=== PATIENT | female | born 1980 | race Caucasian/White ===

== ENCOUNTER 2019-11-27 09:27 | Outpatient (CLI) | payer OTHER, SELFPAY ==
--- NOTE | ~2019-11-27 | MM_ITS ---
EXAMINATION: MM screening trin[facility] BI w cristina HISTORY: Screening mammogram TECHNIQUE: Craniocaudal and mediolateral oblique 3-D tomosynthesis images were obtained and synthetic 2-D images were generated. CAD analysis was submitted and interpreted. COMPARISON: No prior mammogram is available for comparison at this institution. BREAST PARENCHYMAL COMPOSITION: The breasts are extremely dense, which lowers the sensitivity of mamm ography. FINDINGS: RIGHT BREAST: An asymmetry is present in the far posterior third of the breast in line with the nippl e axis on the craniocaudal view. LEFT BREAST: There is a possible low density mass in the central breast. IMPRESSION: 1. Bilateral breast findings as described above. 2. Additional mammographic views and possible breast ultrasound are recommended. BI-RADS Category 0: Incomplete: Needs additional imaging evaluation. Reviewed, dictated and finalized at location A. IMPRESSION: 1. Bilateral breast findings as described above. 2. Additional mammographic views and possible breast ultrasound are recommended . BI-RADS Category 0: Incomplete: Needs additional imaging evaluation.
== END 2019-11-27 09:28 | disposition home or self-care (01) ==
LOC: ANHIMG 09:30
PROVIDERS: PCP Nurse Practitioner Family; Visit Provider Obstetrics & Gynecology
DX: Z12.31 Encounter for screening mammogram for malignant neoplasm of breast (principal); R92.8 Other abnormal and inconclusive findings on diagnostic imaging of breast
CPT/HCPCS: 77063; 77067

== ENCOUNTER 2019-12-18 12:57 | Outpatient (CLI) | payer OTHER, SELFPAY ==
--- NOTE | ~2019-12-18 | MMUS_ITS ---
EXAMINATION: MM diagnostic mammo BI, US breast BI complete HISTORY: Follow-up breast asymmetries TECHNIQUE: Additional 3-D tomosynthesis images of the breasts were performed and synthetic 2-D images were generated. CAD analysis was submitted and interpreted. High resolution bilateral breast ultraso und was performed. COMPARISON: 11/27/2019 BREAST PARENCHYMAL COMPOSITION: The breasts are extremely dense, which lowers the sensitivity of mamm ography. FINDINGS: MAMMOGRAPHIC FINDINGS: There are no suspicious masses, calcifications or architectural distortion in either breast to sugges t malignancy. ULTRASOUND: Bilateral breast ultrasound: Normal heterogeneous echotexture without focal solid or cystic mass. IMPRESSION: 1. No mammographic or sonographic evidence for malignancy in either breast. 2. Routine yearly screening mammogram and regular clinical breast examination are recommended. BI-RADS Category 1: Negative Reviewed, dictated and finalized at location A. IMPRESSION: 1. No mammographic or sonographic evidence for malignancy in either breast. 2. Routine yearly screening mammogram and regular clinical breast examination a re recommended. BI-RADS Category 1: Negative
== END 2019-12-18 12:58 | disposition home or self-care (01) ==
PROVIDERS: PCP Nurse Practitioner Family; Visit Provider Obstetrics & Gynecology
DX: R92.8 Other abnormal and inconclusive findings on diagnostic imaging of breast (principal)
CPT/HCPCS: 76641; 77066

== ENCOUNTER 2020-11-28 14:23 | Outpatient (CLI) | payer OTHER, SELFPAY ==
--- NOTE | ~2020-11-28 | MM_ITS ---
EXAMINATION: MM screening [facility] BI w cristina HISTORY: Screening mammogram TECHNIQUE: Craniocaudal and mediolateral oblique 3-D tomosynthesis images were obtained and synthetic 2-D images were generated. CAD analysis was submitted and interpreted. COMPARISON: 12/18/2019, 11/27/2019 BREAST PARENCHYMAL COMPOSITION: The breasts are extremely dense, which lowers the sensitivity of mamm ography. FINDINGS: There is a stable asymmetry in the posterior third of the outer left breast which did not d emonstrate suspicious correlate on further imaging evaluation after baseline screening mammogram. The re is no evidence of suspicious mass, calcification, or architectural distortion to suggest malignanc y in either breast. There has been no suspicious interval change. IMPRESSION: 1. No mammographic evidence of malignancy. 2. Recommend routine screening mammography in one year. BI-RADS Category 2: Benign finding(s). Reviewed, dictated and finalized at location A.
== END 2020-11-28 14:24 | disposition home or self-care (01) ==
LOC: ANHIMG 14:26
PROVIDERS: PCP Nurse Practitioner Family; Visit Provider Obstetrics & Gynecology
DX: Z12.31 Encounter for screening mammogram for malignant neoplasm of breast (principal)
CPT/HCPCS: 77063; 77067

== ENCOUNTER 2021-04-28 16:29 | Outpatient (CLI) | payer OTHER, SELFPAY ==
[2021-04-28 16:51] LABS: Basophils Absolute Auto 0.05 K/mm3 (0.00-0.10); Basophils Percent Auto 0.8 % (0.0-1.0); Eosinophils Absolute Auto 0.26 K/mm3 (0.02-0.50); Eosinophils Percent Auto 4.2 % (1.0-6.0); Hematocrit 37.8 % (35.0-49.0); Hemoglobin 13.2 g/dL (12.0-15.0); Immature Granulocyte Absolute 0.02 K/mm3 (0.00-0.00); Immature Granulocyte Percent A 0.3 % (0.0-0.0); Lymphocytes Absolute Auto 1.79 K/mm3 (1.10-4.50); Mean Corpuscular HGB Conc 34.9 g/dL (32.0-36.0); Mean Corpuscular Hemoglobin 31.6 pg (27.0-31.0); Mean Corpuscular Volume 90.4 fL (78.0-102.0); Mean Platelet Volume 9.5 fl (9.2-11.8); Monocytes Absolute Auto 0.41 K/mm3 (0.10-0.90); Monocytes Percent Auto 6.6 % (2.0-11.0); Neutrophils Absolute Auto 3.7 K/mm3 (1.7-7.2); Neutrophils Percent Auto 59.1 % (50.0-70.0); Platelet Count Result 283 K/mm3 (150-420); Red Blood Count 4.18 M/mm3 (4.20-5.40); Red Cell Distribution Width 11.9 % (11.6-14.4); White Blood Count 6.2 K/mm3 (4.8-10.8)
[2021-04-28 16:55] LABS: Creatinine Urine 73.73 mg/dL (40-278); Total Protein Urine Random 13.5 mg/dL (0.0-11.9); Ur Ttl Prot Creatinine Ratio 0.18 mg/mg (0-0.20)
[2021-04-28 16:58] LABS: Hemoglobin A1C 7.1 % (<5.7)
[2021-04-28 17:56] LABS: Alanine Aminotransferase 18 U/L (14-59); Albumin Level 3.9 g/dL (3.4-5.0); Alkaline Phosphatase 80 U/L (46-116); Anion Gap 10 mmol/L (8-16); Aspartate Amino Transferase 13 U/L (15-37); Bilirubin,Total 0.3 mg/dL (0.00-1.00); Blood Urea Nitrogen 14 mg/dL (7-18); Calcium 8.4 mg/dL (8.5-10.1); Carbon Dioxide 28 mmol/L (21-32); Chloride 103 mmol/L (98-108); Cholesterol 171 mg/dL (0-200); Estimated Glomerular Filt Rate > 60; Glucose 149 mg/dL (70-99); HDL Direct 72 mg/dL (40-60); LDL Cholesterol Calculated 86 mg/dL (<130); Osmolality Calculated 295 mOsm/kg (285-295); Potassium 4.3 mmol/L (3.5-5.1); Sodium 141 mmol/L (136-145); Total Protein 6.6 g/dL (6.4-8.2); Triglycerides 65 mg/dL (0-150)
[2021-04-28 17:57] LABS: Thyroid Stimulating Hormone Reflex 0.52 u/IU/mL (0.36-3.74)
[2021-05-01 10:39] LABS: Vitamin D 25 Hydroxy 37 ng/mL (30-100)
== END 2021-04-28 16:30 | disposition home or self-care (01) ==
LOC: CHSLAB 16:34
PROVIDERS: PCP Nurse Practitioner Family
DX: E10.65 Type 1 diabetes mellitus with hyperglycemia (principal)
CPT/HCPCS: 36415; 80053; 80061; 82306; 82570; 83036; 84156; 84443; 85025

== ENCOUNTER 2021-05-04 16:02 | Outpatient (CLI) | payer OTHER, SELFPAY ==
[2021-05-04 17:52] LABS: SARS-CoV-2 RNA PCR Negative (Negative)
== END 2021-05-04 16:03 | disposition home or self-care (01) ==
LOC: CHSLAB 16:06
PROVIDERS: PCP Nurse Practitioner Family; Visit Provider Nurse Practitioner Family
DX: R11.10 Vomiting, unspecified (principal); Z20.822 Contact with and (suspected) exposure to COVID-19
CPT/HCPCS: C9803; U0003; U0005

== ENCOUNTER 2021-11-30 09:00 | Outpatient (CLI) | payer OTHER, SELFPAY ==
--- NOTE | ~2021-11-30 | MM_ITS ---
EXAMINATION: MM screening trinh BI w cristina HISTORY: Screening TECHNIQUE: Craniocaudal and mediolateral oblique 3-D tomosynthesis images were obtained and synthetic 2-D images were generated. CAD analysis was submitted and interpreted. COMPARISON: Comparison to multiple prior studies sequentially, with oldest reviewed study dated 11/26. BREAST PARENCHYMAL COMPOSITION: The breasts are extremely dense, which lowers the sensitivity of mamm ography FINDINGS: There is no evidence of suspicious mass, calcification, or architectural distortion to sugg est malignancy in either breast. There has been no suspicious interval change. IMPRESSION: 1. No mammographic evidence of malignancy. 2. Recommend routine screening mammography in one year. BI-RADS Category 1: Negative Reviewed, dictated and finalized at location A.
== END 2021-11-30 09:01 | disposition home or self-care (01) ==
LOC: ANHIMG 09:02
PROVIDERS: PCP Nurse Practitioner Family; Visit Provider Obstetrics & Gynecology
DX: Z12.31 Encounter for screening mammogram for malignant neoplasm of breast (principal)
CPT/HCPCS: 77063; 77067

== ENCOUNTER 2022-09-20 15:49 | Outpatient (CLI) | payer OTHER, SELFPAY ==
--- NOTE | ~2022-09-20 | US_ITS ---
EXAMINATION: US pelvic complete w TV DATE: 09/20/2022 16:36 INDICATION: Uterine hypertrophy Comparison:Ultrasound dated 03/31/2013 TECHNIQUE: Multiple transabdominal and endovaginal sonographic images of the pelvis performed. FINDINGS: The uterus measures 9.4 x 5.9 x 6.5 cm. The endometrial complex measures 1.5 cm. There is t race fluid in the endometrium. The right ovary measures 3.1 x 2.9 x 4.3 cm and the left ovary measures 4.2 x 2.4 x 1.7 cm. There ar e small follicles in each ovary. Normal doppler signal in both ovaries. There is trace free fluid in the pelvis. There are no abnormal masses seen on either side. IMPRESSION: 1. Thickened endometrium measuring 1.5 cm. Reviewed, dictated and finalized at location B.
== END 2022-09-20 15:50 | disposition home or self-care (01) ==
PROVIDERS: PCP Nurse Practitioner Family; Visit Provider Obstetrics & Gynecology
DX: N85.2 Hypertrophy of uterus (principal)
CPT/HCPCS: 76830; 76856

== ENCOUNTER 2023-02-26 09:33 | Outpatient (CLI) | payer OTHER, SELFPAY ==
--- NOTE | ~2023-02-26 | MM_ITS ---
EXAMINATION: MM screening [facility] BI w cristina HISTORY: Screening mammogram TECHNIQUE: Craniocaudal and mediolateral oblique 3-D tomosynthesis images were obtained and synthetic 2-D images were generated. CAD analysis was submitted and interpreted. COMPARISON: 11/30/2021, 11/28/2020 bilateral screening mammogram examinations 12/2019 bilateral diagnostic mammogram and bilateral complete breast ultrasound examination, reported negative 11/27/2019 bilateral screening mammogram BREAST PARENCHYMAL COMPOSITION: The breasts are extremely dense, which lowers the sensitivity of mamm ography. FINDINGS: There is no evidence of suspicious mass, calcification, or architectural distortion to sugg est malignancy in either breast. There has been no suspicious interval change. IMPRESSION: 1. No mammographic evidence of malignancy. 2. Recommend routine screening mammography in one year. BI-RADS Category 1: Negative Reviewed, dictated and finalized at location B.
== END 2023-02-26 09:34 | disposition home or self-care (01) ==
PROVIDERS: PCP Nurse Practitioner Family; Visit Provider Obstetrics & Gynecology
DX: Z12.31 Encounter for screening mammogram for malignant neoplasm of breast (principal)
CPT/HCPCS: 77063; 77067

== ENCOUNTER 2023-06-20 14:35 | Emergency (ER) | payer OTHER, SELFPAY ==
[2023-06-20 14:44] VITALS: BP 111/75; PULSE 78; RESP 18; TEMP 37.3; O2SAT 100
--- NOTE | 2023-06-20 14:47 | ED.GENADULT ---
HPI - General Adult General Chief complaint: Eye Problems Stated complaint: Eyes Source: patient, RN notes reviewed and old records reviewed Mode of arrival: ambulatory Limitations: no limitations History of Present Illness HPI narrative: 42-year-old female presents to [facility] with complaints of right eye irritation, redness, matting that started Tuesday morning. Patient states thought got laboratory equipment cleaner and eye Tuesday while cleaning but patient started using son's Polytrim eyedrops and has slight improvement until she ran out. Patient states then today woke with irritation swelling and crusting in bilateral eyes. Related Data Home Medications Medication Instructions Recorded Confirmed insulin lispro 100 unit/mL See Rx Instructions .Route .COMPLEX 06/20/23 06/20/23 subcutaneous solution (Humalog U-100 Insulin) levothyroxine 50 mcg tablet mcg 06/20/23 06/20/23 (Synthroid) Allergies Allergy/AdvReac Type Severity Reaction Status Date / Time erythromycin base Allergy Intermediate Unknown Verified 06/20/23 14:52 latex Allergy Intermediate Unknown Verified 06/20/23 14:52 Review of Systems Constitutional: Constitutional: Reports no additional constitutional complaints, Denies body ache(s), Denies chills, Denies fatigue, Denies fever(s) and Denies headache(s) Eyes: Eyes: Reports no additional eye complaints, Denies blurry vision, Denies exophthalmos, Denies change in vision, Denies decreased night vision, Denies diplopia, Reports eye discharge, Reports irritation, Reports itchy eyes, Denies loss of peripheral vision, Denies loss of vision, Denies eye pain, Denies requires corrective lenses, Denies seeing flashes, Denies photophobia, Denies spots in vision and Denies tunnel vision ENT: Reports system reviewed and no additional complaints, except as documented, Denies vertigo, Denies dizziness, Denies ear discharge, Denies otalgia, Denies facial pain, Denies headache(s), Denies nasal congestion, Denies nasal discharge, Denies sinus pain, Denies sinus pressure and Denies sore throat Cardiovascular: Cardiovascular: Reports no additional cardiovascular complaints, Denies chest pain, Denies chest pain at rest, Denies rapid heart rate and Denies dyspnea Respiratory: Respiratory: Reports no additional respiratory complaints, Denies chest congestion, Denies cough, Denies pain on inspiration, Denies pain with cough and Denies dyspnea Gastrointestinal: Gastrointestinal: Denies abdominal pain, Denies diarrhea, Denies nausea and Denies vomiting Integumentary/Breasts: Skin/Breast: Denies rash Neurologic: Reports system reviewed and no additional complaints, except as documented, Denies vertigo, Denies dizziness and Denies headache(s) Endocrine: Endocrine: Denies fatigue PMF Past Medical History Medical History BOBBI (generalized anxiety disorder) Hypothyroidism Type 1 diabetes Vaginal delivery Vitamin C deficiency Surgical History Surgical History H/O dilation and curettage History of breast surgery History of laparoscopy History of tubal ligation Family History Family History Grandparent Family history of coronary artery disease Diabetes mellitus Social History Social History Smoking status: Never smoker Second hand tobacco smoke exposure: No Alcohol intake: current Substance use: never Lack of Transportation: No Lack of Food: Never True Current Housing: I Have Housing Difficulty Paying Gas/Electric Bills: No Difficulty Paying for Meds: No Currently Unemployed: No Education: Master's Degree or Higher Difficulty w/ Childcare or Family Care: No Living arrangements: with family Comments At the time of my signature, I reviewed and agree with the nursing past m
== END 2023-06-20 15:00 | disposition home or self-care (01) ==
PROVIDERS: Emergency Provider Registered Nurse
DX: H10.9 Unspecified conjunctivitis (principal); E03.9 Hypothyroidism, unspecified; E10.9 Type 1 diabetes mellitus without complications; Z79.4 Long term (current) use of insulin
CPT/HCPCS: 99213; G0463

== ENCOUNTER 2024-02-29 15:25 | Outpatient (CLI) | payer OTHER, SELFPAY ==
--- NOTE | ~2024-02-29 | MM_ITS ---
EXAMINATION: MM screening trinh BI w cristina HISTORY: Screening TECHNIQUE: Craniocaudal and mediolateral oblique 3-D tomosynthesis images were obtained and synthetic 2-D images were generated. CAD analysis was submitted and interpreted. COMPARISON: Comparison to multiple prior studies sequentially, with oldest reviewed study dated 11/26. BREAST PARENCHYMAL COMPOSITION: Dense: The breasts are extremely dense, which lowers the sensitivity of mammography. FINDINGS: There is no evidence of suspicious mass, calcification, or architectural distortion to sugg est malignancy in either breast. There has been no suspicious interval change. IMPRESSION: 1. No mammographic evidence of malignancy. 2. Recommend routine screening mammography in one year. BI-RADS Category 1: Negative Reviewed, dictated and finalized at location B.
== END 2024-02-29 15:26 | disposition home or self-care (01) ==
LOC: ANHIMG 15:26
PROVIDERS: PCP Nurse Practitioner Obstetrics & Gynecology; Visit Provider Nurse Practitioner Obstetrics & Gynecology
DX: Z12.31 Encounter for screening mammogram for malignant neoplasm of breast (principal)
CPT/HCPCS: 77063; 77067

== ENCOUNTER 2025-02-14 19:04 | Emergency (ER) | payer OTHER, SELFPAY ==
--- OUTSIDE RECORDS SUMMARY | 2025-02-13 07:02 | XMS_ITS | Continuity of Care Document ---
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 Name Role Phone Denise Xiong PTA Unavailable Unavailable Procedures Procedure Date Therapeutic Activities Neuromuscular Re-Ed Therapeutic Exercise Manual Therapy Therapeutic Activities Neuromuscular Re-Ed Therapeutic Exercise Manual Therapy Therapeutic Activities Neuromuscular Re-Ed Therapeutic Exercise Manual Therapy Progress Note Therapeutic Activities Neuromuscular Re-Ed Therapeutic Exercise Manual Therapy Therapeutic Activities Neuromuscular Re-Ed Therapeutic Exercise Manual Therapy Therapeutic Activities Neuromuscular Re-Ed Therapeutic Exercise Manual Therapy Therapeutic Activities Neuromuscular Re-Ed Therapeutic Exercise Manual Therapy Therapeutic Activities Neuromuscular Re-Ed Therapeutic Exercise Manual Therapy Therapeutic Activities Neuromuscular Re-Ed Therapeutic Exercise Manual Therapy PT Evaluation Moderate Complexity Therapeutic Activities Neuromuscular Re-Ed Therapeutic Exercise Manual Therapy Advance Directives Directive Yes / No Effective Date File Name No Information Encounters Encounter Description Practice Location Reason(s) For Visit Diagnoses Date Provider Providers Copied on Encounter [facility], [address] [address], [place], [place], [id number], tel:[phone] [place] No Information Inga Walker. . [employer] [facility], [address] [facility], [place], [place], [id number], [place] tel:[phone] [place] No Information Elizabeth Christina. . Referring Provider: Kingsley Morrison [address], [place], [address]. tel:[phone] [facility] [address] [place] [address], [id number], [place] tel:[phone] [place] No Information Wai Cervantes. . Referring Provider: Kingsley Morrison [address], [place], [address]. tel:[phone] [facility], [address], [id number], [place] tel:[phone] [place] No Information Juan Ramírez[address], [address], [place]. tel:[phone] Referring Provider: Kingsley Morrison [address], [place], [address]. tel:[phone] [facility], [address] [facility], [place], [place], [id number], [place] tel:[phone] [place] No Information Wai Cervantes. . Referring Provider: Kingsley Morrison [address], [place], [address]. tel:[phone] [employer] [facility], [address] [facility], [place], [place], [id number], [place] tel:[phone] [place] No Information Dany Ramirez. . Referring Provider: Kingsley Morrison, [address] [facility] [address], [place], [address]. tel:[phone] [employer] [facility], [address] [facility], [place], [place], [id number], [place] tel:[phone] [place] No Information Inga Walker. . Referring Provider: Kingsley Morrison, [address] [facility] [address], [place], [address]. tel:[phone] [facility], [address] [facility], [place], [place], [id number], [place] tel:[phone] [place] No Information Inga Walker. . Referring Provider: Kingsley Morrison [address] [facility] [address], [place], [address]. tel:[phone] [facility], [address] [facility] [place], [place], [id number], [place] tel:[phone] [place] No Information Inga Walker. . Referring Provider: Kingsley Morrison [address] [facility] [address], [place], [address]. tel:[phone] [facility], [address] [facility], [place], [place], [id number], [place] tel:[phone] [place] No Information Maxx Faulkner. . Referring Provider: Kingsley Morrison, [address] [facility] [address], [place], [address]. tel:[phone] [employer] [facility], [address], [place], [place], [id number], [place] tel:[phone] [place] No Information Juan Ramírez. [address], [place], [address], [place]. tel:[phone] Referring Provider: [address], [place], [address]. tel:[phone] Family History Family Member Type Diagnosis Age At Onset No Information Payers Payer name Insurance type Covered alliance party ID Authoriza maya(s) [facility] [id number] Social History Type Description Quantity Date Captured Comments Sex Female Smoking Status No Information Chief Complaint And Reason For Visit No Information Reason For Referral Reason For Referral No Information History Of Present Illness Encounter Date Complaint History Of Prese nt Illness No Information Functional Status Date Functional Assessmen t No Information Instructions Date Instruction Additional Infor mation No Information Assessments Type Assessment Date No Information Patient Care Teams Name Effective Dates (start - stop) Status Members No Information
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
[2025-02-14 19:06] VITALS: BP 124/80; PULSE 90; RESP 22; TEMP 36.6; O2SAT 98
--- NOTE | 2025-02-14 19:52 | PC.NURSE ---
PATIENT HAS BEEN TAKEN TO CT AND RETURNED TO ROOM
--- OUTSIDE RECORDS SUMMARY | 2025-02-14 19:53 | XMS_ITS | Clinical Summary ---
Author Organization [facility] [address] [place] [address] [place] [id number] Care Team Providers Care Steel Spar Operator Name Role Phone Rehan Guerrero MD Primary Care Provider [phone] Meena Manjarrez Unavailable [phone] Allergies Active Allergy Reactions Criticality Noted Date Comments Adhesive Tape-Silicones Rash Reaction: RASH Clindamycin Rash Reaction: RASH, Latex Rash Reaction: RASH, Medications adhesive remover (UNISOLVE ADHESIVE REMOVER WIPE) misc Use as directed 0 each 0 014 Active cholecalciferol (Vitamin D3) 2000 unit capsuleIndication s:Vitamin D Deficiency 2000 units daily 020 Active lancets (OneTouch Delica Lancets) 33 gauge misc Test 3 times a day as needed for backup to sensor and prn 300 each 2 020 Active citalopram (CeleXA) 20 mg tablet 022 Active blood glucose diagnostic (OneTouch Verio test strips) stripIndications: Type 1 diabetes mellitus with hyperglycemia (HCC),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 50 each 11 022 Active insulin pump cartridge cartridgeIndicati ons:Type 1 diabetes mellitus with hyperglycemia (HCC),Type 1 diabetes mellitus without complication,Hypo thyroidism, unspecified type Change every 2 -3 days as needed 12 each 3 022 Active methylPREDNISolon e (Medrol, Lusi,) 4 mg DosepackIndicatio ns:Acute KOLE (middle ear effusion), left follow package directions 6 packet 023 Active drospirenone, contraceptive, (SLYND) tablet tablet 024 Active glucagon (BAQSIMI) 3 mg/actuation spray,non-aerosol Indications:Type 1 diabetes mellitus with hyperglycemia (HCC) 1 squirt in nostril x1 for severe hypoglycemia 2 each 3 024 Active insulin glargine 100 unit/mL (3 mL) pen for injectionIndicati ons:Type 1 diabetes mellitus with hyperglycemia (HCC) Inject 6 units daily in case of pump failure 3 mL 2 024 Active levothyroxine (SYNTHROID) 50 mcg tabletIndications :Acquired hypothyroidism Take 1 tablet (50 mcg total) by mouth germination testing manager before breakfast 90 tablet 3 024 Active insulin lispro (HumaLOG) 100 unit/mL vial for injectionIndicati ons:Type 1 diabetes mellitus with hyperglycemia (HCC) INJECT 50 UNITS UNDER THE SKIN DAILY VIA INSULIN PUMP 50 mL 3 025 Active blood-glucose sensor (Dexcom G7 Sensor) device Use with Dexcom system to continuously monitor blood glucose. Change ever 10 days. 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 Assessment & Plan (11/20/2021 2:00 PM CDT): She is adept in using and managing the insulin pump and CGM. -Date in insulin pump was wrong, but updated today. Assessment & Plan (04/30/2021 3:44 PM DRUPAL PROGRAMMER): She is adept in using and managing the insulin pump and CGM. Assessment & Plan (01/30/2021 2:36 PM CDT): She is adept in using and managing the insulin pump. She is intelligent and motivated in managing diabetes. Hypoglycemia due to type 1 diabetes mellitus Insulin pump titration 06/23/2016 Assessment & Plan (04/19/2018 1:46 PM DRUPAL PROGRAMMER): Continue insulin pump basal rates; we will tighten the insulin to carbohydrate ratio at 0800 and 0900 to decrease hyperglycemic excursions mid-morning. INSULIN PUMP MODEL: Tandem Tslim INSULIN: Novolog SETTINGS: TIME: BASAL RATE: ICR: TDB: 8.7 units 0000 0.3 1:14 0300 0.4 1:14 0600 0.4 1:11 0800 0.35 1:10-->9.5 0900 0.35 1:12-->11 1130 0.45 1:8.5 1700 0.3 1:9.5 TARGET: 120 AIT: 3.00 If blood glucose drops with change, resume previous settings. If pump fails, please use insulin and needle until pump can be resumed BOLUS INSULIN: Inject 1 unit per 12 grams of carbohydrates with each meal and snack Resume insulin pump as soon as possible. Follow up in [address] Taylor or [facility]. Contact diabetes center with any questions/concerns. Type 1 diabetes mellitus with hyperglycemia 12/2016 Assessment & Plan (05/29/2022 4:56 PM DRUPAL PROGRAMMER): Per Tandem report, time in Target Range remains stable around 60%, with minimal hypoglycemia. Continue using Dexcom + Tandem insulin pump for integrated technology. Recommend increasing evening basal rate to help prevent hyperglycemia before bed. Assessment & Plan (11/20/2021 2:01 PM CDT): Check Hemoglobin A1c. Continue using Dexcom + Tandem insulin pump for integrated technology. No insulin pump setting changes were made today. Assessment & Plan (04/30/2021 3:44 PM DRUPAL PROGRAMMER): Awaiting recent lab results for new Hemoglobin A1c. Time in Target Range is around 70%. She denies recent trouble with hypoglycemia. Continue using Tandem insulin pump + Dexcom for integrated technology. No insulin pump setting changes today. Assessment & Plan (01/30/2021 2:36 PM CDT): No recent Hemoglobin A1c; blood sugars are fluctuating around meal times with minimal hypoglycemia. Recommend increasing carb ratio at lunch to help flatten spike in blood glucose and recommend decreasing basal rate after work due to change in routine and late dinner to prevent hypoglycemia. Family history of type 1 diabetes mellitus 06/23 Type 1 diabetes mellitus 09/29/2013 Overview (10/17/2017): IDDM (insulin dependent diabetes mellitus) Assessment & Plan (04/19/2018 1:45 PM DRUPAL PROGRAMMER): Diabetes is improving with treatment. A1c 6.3% today Continue current treatment regimen. Reminded to bring in blood sugar diary at next visit. Dietary recommendations for ADA diet. Regular aerobic exercise. Discussed ways to avoid symptomatic hypoglycemia. Discussed sick day management. Discussed foot care. Diabetes will be reassessed in 6 months. Continue insulin pump basal rates; we will tighten the insulin to carbohydrate ratio at 0800 and 0900 to decrease hyperglycemic excursions mid-morning. INSULIN PUMP MODEL: Tandem Tslim INSULIN: Novolog SETTINGS: TIME: BASAL RATE: ICR: TDB: 8.7 units 0000 0.3 1:14 0300 0.4 1:14 0600 0.4 1:11 0800 0.35 1:10-->9.5 0900 0.35 1:12-->11 1130 0.45 1:8.5 1700 0.3 1:9.5 TARGET: 120 AIT: 3.00 If blood glucose drops with change, resume previous settings. Follow up in [address] Taylor or [facility]. Contact diabetes center with any questions/concerns. If pump fails, please use insulin and needle until pump can be resumed BOLUS INSULIN: Inject 1 unit per 12 grams of carbohydrates with each meal and snack Resume insulin pump as soon as possible. Hypothyroidism 09/29/2013 Overview (08/20/2016): Hypothyroidism Assessment & Plan (05/28/2022 1:27 PM DRUPAL PROGRAMMER): She is taking levothyroxine AM daily, consistently. 11/2021- TSH 0.98 (0.45-4.50), Free T4 1.40 (0.82-1.77) Assessment & Plan (11/20/2021 1:59 PM CDT): She is taking levothyroxine AM daily, consistently. Check TFTs. Assessment & Plan (04/30/2021 3:41 PM DRUPAL PROGRAMMER): Clinically euthyroid; taking levothyroxine 50 mcg daily. Awaiting recent lab results... Assessment & Plan (01/30/2021 2:33 PM CDT): Clinically euthyroid on current dose of levothyroxine. Recommend checking TSH Type 1 diabetes mellitus without complication Overview (08/20/2016): DMI WO CMP NT ST UNCN[facility] Iatrogenic hypothyroidism 09/29/2013 Overview (08/20/2016): IATROGEN HYPOTHYROID NEC Diabetes mellitus 03/13/2013 Overview (08/20/2016): Hypoglycemia associated with diabetes History of insertion of insulin pump 03/13/2013 Overview (08/20/2016): Insulin pump status Antepartum placenta previa without hemorrhage Overview (08/20/2016): Placenta previa without hemorrhage, antepartum Placenta previa found before labor and delivery by section without hemorrhage 04/27/2012 Overview (08/20/2016): Placenta previa before labor and delivery Encounters Date Type Department Care Team Description 12/07/2024 Results Follow-Up [facility] Endocrinology Metabolism and Lipid [address] [facility] Medicine 5[address] [place] [address] [place] [address] Nuris Hobson MD CBC without differential, Comprehensive metabolic panel, Thyroid Function [place], Additional followed-up results: 3 from Last 3 Months Immunizations Immunization Administration Dates Next Due Influenza, Quadrivalent, Spl it, Preservative Free, Intramuscular 01/19/2018 Influenza, Split 03/01/2012 Surgical History Surgery Date Site/Laterality Comments BREAST BIOPSY 2001 Breast biopsy OTHER SURGICAL HISTORY 2007 : OTHER SURGICAL HISTORY 2011 D&C OTHER SURGICAL HISTORY 2011 : missed SECTION 2012 section BREAST SURGERY Breast Surgery - (Added by TW Conv) KNEE SURGERY Knee Surgery - -2010 (Added by TW Conv) SECTION Section - -2012 (Added by Conv) Medical History Medical History Date Comments Diabetes mellitus Diabetes Hx Other Medical 2007 ; Outc ome: 9 lb(s) 14 oz Male Hx Other Medical 2007 ; Comm ents: Shoulder dystocia.; Outcome: 36 week 9 lb(s) 14 oz Male Hx Other Medical 2011 ; Outc ome: Unknown sex Vitamin D insufficiency 01/15/2022 Family History Medical History Relation Name Comments Other Father Alive and well; Other Maternal Grandfather Alive a nd well; Diabetes type II Maternal Grandmother [place]y [place] -Type II; Other Mother Alive and well; Diabetes type II Other 1 Type 2 Diab etes Mellitus - Relation: Grandmother (Added by TW Conv) Cancer Other 2 Cancer - Relati on: Aunt (Added by TW Conv) Colon cancer Paternal Grandfather Cancer -colon; Cancer Paternal Grandmother Cancer -; Other Sister 2 Alive and well; Relation Name Status Comments Father Alive Maternal Grandfather Alive Maternal Grandmother Mother Alive Other 1 Other 2 Paternal Grandfather Paternal Grandmother Sister 1 Alive Sister 2 Social History Tobacco Use Types Packs/Day Years Used Date Smoking Tobacco: Never Tobacco Cessation:Counseling Given: Not Answered Alcohol Use Standard Drinks/Week Comments No 0 (1 standard drink = 0.6 oz pur e alcohol) Comments Unknown Sex and Gender Information Value Date Recorded Sex Assigned at Not on file Legal Sex Female 6:30 AM DRUPAL PROGRAMMER Gender Identity Not on file Sexual Orientation Not on file Obstetrics History Last Filed Vital Signs Vital Sign Reading Time Taken Comments Blood Pressure 120/72 06/30/2024 4:55 PM DRUPAL PROGRAMMER Pulse 80 06/30/2024 4:55 PM DRUPAL PROGRAMMER Temperature 36.8 C (98.2 F) 06/30/2024 4:55 PM DRUPAL PROGRAMMER Respiratory Rate 18 06/30/2024 4:55 PM DRUPAL PROGRAMMER Oxygen Saturation 97% 06/30/2024 4:55 PM DRUPAL PROGRAMMER Inhaled Oxygen Concentration - - Weight 60.3 kg (133 lb) 06/30/2024 4:55 PM DRUPAL PROGRAMMER Height 162.6 cm (5' 4) 06/30/2024 4:55 PM DRUPAL PROGRAMMER Body Mass Index 22.83 06/30/2024 4:55 PM DRUPAL PROGRAMMER Plan of Treatment Health Maintenance Due Date Last Done Comments Breast Cancer Screening-Mammogram 1979 Cervical Cancer Screening 1979 Colon Cancer Screening-Colonoscopy 1979 Depression Screening 1979 Foot Exam 1979 Hepatitis C Screening 1979 Dilated Eye Exam 08/31/1989 DTaP/Tdap/Td Vaccine (1 - Tdap) 08/31/1990 Varicella Vaccines (1 of 2 - 13+ 2-dose series) 08/31/1992 Hepatitis B Screening 08/31/1997 Regular Well Visit/Exam 18-64 08/31/1997 Pneumococcal vaccine <65 (1 of 2 - PCV) 08/31/1998 HPV Vaccines (1 - 3-dose SCD M series) 08/31/2006 Hemoglobin A1C 09/30/2024 04/02/2024, 10/15, 04/02/2023, Additional history exists Influenza Vaccine (#1) 2025 9, 01/19/2018, 03/15/2017, Additional history exists Albumin Creatinine Ratio, Urine 12/06/2025 12/06/2024, 04/02/2023, 11/30/2021, Additional history exists Lipid Panel 12/06/2025 12/06/2024, 03/16, 11/30/2021, Additional history exists TSH Level 12/06/2025 12/06/2024, 03/16, 11/30/2021, Additional history exists eGFR 12/06/2025 12/06/2024, 03/16, 11/30/2021, Additional history exists Procedures Procedure Name Priority Date/Time Associated Diagnosis Comments VITAMIN B12 Routine 12/06/2024 1:57 PM CDT Type 1 diabetes mellitus with hyperglycemia (HCC) Acquired hypothyroidism Hypothyroidism, unspecified type Insulin pump in place ALBUMIN CREATININE RATIO, URINE Routine 12/06/2024 1:57 PM CDT Type 1 diabetes mellitus with hyperglycemia (HCC) Acquired hypothyroidism Hypothyroidism, unspecified type Insulin pump in place LIPID PANEL Routine 12/06/2024 1:57 PM CDT Type 1 diabetes mellitus with hyperglycemia (HCC) Acquired hypothyroidism Hypothyroidism, unspecified type Insulin pump in place THYROID FUNCTION CASCADE Routine 12/06/2024 1:57 PM CDT Type 1 diabetes mellitus with hyperglycemia (HCC) Acquired hypothyroidism Hypothyroidism, unspecified type Insulin pump in place COMPREHENSIVE METABOLIC PANEL Routine 12/06/2024 1:57 PM CDT Type 1 diabetes mellitus with hyperglycemia (HCC) Acquired hypothyroidism Hypothyroidism, unspecified type Insulin pump in place CBC WITHOUT DIFFERENTIAL Routine 12/06/2024 1:57 PM CDT Type 1 diabetes mellitus with hyperglycemia (HCC) Acquired hypothyroidism Hypothyroidism, unspecified type Insulin pump in place POCT HEMOGLOBIN A1C Routine 04/02/2024 1 0:35 AM DRUPAL PROGRAMMER Type 1 diabetes mellitus with hyperglycemia (HCC) from Last 3 Months or Most Recently Relevant to Health Maintenance Results * Thyroid Function [place] (12/06/2024 1:57 PM CDT) [facility] TSH 0.775 0.450 - 4.500 uIU/mL [facility] - 01 Comment: No apparent thyroid disorder. Additional testing not indicated. In rare instances, Secondary Hypothyroidism as well as Subclinical Hypothyroidism have been reported in some patients with normal TSH values. Blood 12/06/2024 1:57 PM CDT 12/06/2024 Narrative [facility] - 12/07/2024 9:10 AM CDT Performed at: [facility] [id number] Boat Motor Mechanic: Ventura Brady PhD, Phone: [phone] Nuris Hobson MD LAB BLOOD ORDERABLES Final Result Performing Organization Address [facility] Co de Phone Number [facility] * Albumin Creatinine Ratio, Urine (12/06/2024 1:57 PM CDT) Creatinine ur 14.1 Not Estab. mg/dL [facility] - 01 Microalbumin, ur <3.0 Not Estab. ug/mL [facility] - 01 Microalbumin/cre at ratio <21 0 - 29 mg/g creat [facility] - 01 Comment: Normal: 0 - 29 Moderately increased: 30 - 300 Severely increased: >300 Urine 12/06/2024 1:57 PM CDT 12/06/2024 Narrative [facility] - 12/07/2024 9:10 AM CDT Performed at: [address] [place] [id number] Boat Motor Mechanic: Ventura Brady PhD, Phone: [phone] Nuris Hobson MD LAB URINE ORDERABLES Final Result Performing Organization Address [facility] de Phone Number [facility] * CBC without differential (12/06/2024 1:57 PM CDT) WBC 5.6 3.4 - 10.8 x10E3/uL [facility] - 01 RBC 4.44 3.77 - 5.28 x10E6/uL [facility] - 01 Hgb 14.4 11.1 - 15.9 g/dL [facility] - 01 Hct 42.6 34.0 - 46.6 % [facility] - 01 MCV 96 79 - 97 fL [facility] - 01 MCH 32.4 26.6 - 33.0 pg [facility] - 01 MCHC 33.8 31.5 - 35.7 g/dL [facility] - 01 Rdw 12.0 11.7 - 15.4 % [facility] - 01 Platelets 315 150 - 450 x10E3/uL [facility] - 01 Blood 12/06/2024 1:57 PM CDT 12/06/2024 Narrative [facility] - 12/07/2024 7:09 AM CDT Performed at: [address] [place] [id number] Boat Motor Mechanic: Ventura Brady PhD, Phone: [phone] Nuris Hobson MD LAB BLOOD ORDERABLES Final Result Performing Organization Address [facility] Co de Phone Number [facility] - * Vitamin B12 (12/06/2024 1:57 PM CDT) [facility] Vitamin B12 444 232 - 1,245 pg/mL [facility] - 01 Blood 12/06/2024 1:57 PM CDT 12/06/2024 Narrative [facility] - 12/07/2024 10:10 AM CDT Performed at: [address] [place] [id number] Boat Motor Mechanic: Ventura Brady PhD, Phone: [phone] Nuris Hobson MD LAB BLOOD ORDERABLES Final Result Performing Organization Address [facility] de Phone Number [facility] - * (ABNORMAL) Lipid panel (12/06/2024 1:57 PM CDT) [facility] Signature Cholesterol 190 100 - 199 mg/dL [facility] - 01 Triglycerides 96 0 - 149 mg/dL [facility] - 01 HDL Cholesterol 66 >39 mg/dL [facility] - 01 VLDL 17 5 - 40 mg/dL [facility] - 01 LDL, calculated 107(H) 0 - 99 mg/dL [facility] - 01 Blood 12/06/2024 1:57 PM CDT 12/06/2024 Narrative [facility] - 12/07/2024 9:10 AM CDT Performed at: [address] [place] [id number] Boat Motor Mechanic: Ventura Brady PhD, Phone: [phone] us Nuris Hobson MD LAB BLOOD ORDERABLES Final Result [facility] - 01 * (ABNORMAL) Comprehensive metabolic panel (12/06/2024 1:57 PM CDT) Pathologist [facility] Glucose 237(H) 70 - 99 mg/dL [facility] - 01 BUN 9 6 - 24 mg/dL [facility] - 01 Creatinine, Serum 0.88 0.57 - 1.00 mg/dL [facility] - 01 eGFR 83 >59 mL/min/1.7 3 [facility] - 01 BUN/creat ratio 10 9 - 23 [facility] - 01 Sodium 135 134 - 144 mmol/L [facility] - 01 Potassium, sr 4.6 3.5 - 5.2 mmol/L [facility] - 01 Chloride 100 96 - 106 mmol/L [facility] - 01 CO2 21 20 - 29 mmol/L [facility] - 01 Calcium 9.2 8.7 - 10.2 mg/dL [facility] - 01 Protein, sr 7.1 6.0 - 8.5 g/dL [facility] - 01 Albumin 4.6 3.9 - 4.9 g/dL [facility] - 01 Globulin, Total 2.5 1.5 - 4.5 g/dL [facility] - 01 Bilirubin, Total 0.8 0.0 - 1.2 mg/dL [facility] - 01 Alk phos 64 44 - 121 IU/L [facility] - 01 AST 17 0 - 40 IU/L [facility] - 01 ALT 11 0 - 32 IU/L [facility] - 01 Blood 12/06/2024 1:57 PM CDT 12/06/2024 Narrative [facility] - 12/07/2024 9:10 AM CDT Performed at: 01 - [facility] [id number] Boat Motor Mechanic: Ventura Brady PhD, Phone: [phone] Nuris Hobson MD LAB BLOOD ORDERABLES Final Result [facility] - 01 * POCT hemoglobin A1c (04/02/2024 10:35 AM DRUPAL PROGRAMMER) Hemoglobin A1C, POC 7.2 4.0 - 5.6 % Blood 04/02/2024 10:3 5 AM DRUPAL PROGRAMMER Nuris Hobson MD POINT OF CARE TEST ORDERAB LES Final Result from Last 3 Months or Most Recently Relevant to Health Maintenance Insurance [facility] CHO[facility] H[facility]/PPO Address: [place] [address] [facility] H[facility]/PPO Address: [address] [address] [place] [address] [facility] CHOICE [employer] [facility] H[facility]/PPO Address: [address] [place], [place] [id number] Care Teams Steel Spar Operator Relationship Specialty Start Date End Date Rehan Guerrero MD [address] [place], [place] [id number] PCP - General 08/13/16 Meena Manjarrez PA [address] [place], [place] [id number] Physician Ironer Machine Physician Ironer Machine 01/30/21
--- OUTSIDE RECORDS SUMMARY | 2025-02-14 19:53 | XMS_ITS | Encounter Summary ---
Author Organization [facility] Address [address] [place] [address] Phone Care Team Providers Care Powder Line Repairer Name Role Phone Rehan Guerrero MD Primary Care Provider [phone] Meena Manjarrez Unavailable [phone] Encounter Details Date Type Department Care Team (Latest Contact Info) Description 02/19/2019 Orders Only [facility] Scanning, Provider Social History Tobacco Use Types Packs/Day Years Used Date Smoking Tobacco: Never Alcohol Use Standard Drinks/Week Comments No 0 (1 standard drink = 0.6 oz pur e alcohol) Comments Unknown Sex and Gender Information Value Date Recorded Sex Assigned at Not on file Legal Sex Female 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 Gender Identity Not on file Sexual Orientation Not on file documented as of this encounter Plan of Treatment Not on file documented as of this encounter Procedures Procedure Name Priority Date/Time Associated Diagnosis Comments SCAN - OTHER ORDERS 02/19/2019 documented in this encounter Results * SCAN - OTHER ORDERS (02/19/2019) us Provider Scanning Final Result documented in this encounter Visit Diagnoses Not on filedocumented in this encounter Additional Health Concerns Infection Onset Date Last Indicated Resolved Time COVID: Suspected 06/30/2024 06/30/2024 06/30/2024 5:46 PM WORKPLACE 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 documented as of this encounter Care Teams Powder Line Repairer Relationship Specialty Start Date End Date Rehan Guerrero MD [address] [place] [address] PCP - General 08/13/16 Meena Manjarrez PA [address] [place] [address] Physician Senior Compensation Analyst Physician Senior Compensation Analyst 01/30/21 documented as of this encounter
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
[2025-02-14] MEDS: CYCLOBENZAPRINE HCL 5 MG TABLET PO (20:28)
--- NOTE | 2025-02-14 20:30 | PC.NURSE ---
PATIENT GOT UP OFF OF STRETCHER. REPORTS THAT SHE IS STARTING TO FEEL STIFF. ENCOURAGED HOT/WARM SHOWER AND TO DO STRETCHER TO HELP WITH STIFFNESS. VERBALIZED UNDERSTANDING
[2025-02-14 20:40] VITALS: BP 114/76; PULSE 82; RESP 18; O2SAT 100
== END 2025-02-14 20:40 | disposition home or self-care (01) ==
PROVIDERS: Emergency Provider Emergency Medicine; PCP Nurse Practitioner Family
DX: S16.1XXA Strain of muscle, fascia and tendon at neck level, initial encounter (principal); E03.9 Hypothyroidism, unspecified; E10.9 Type 1 diabetes mellitus without complications; Z79.4 Long term (current) use of insulin; Z79.899 Other long term (current) drug therapy; V43.52XA Car driver injured in collision with other type car in traffic accident, initial encounter
CPT/HCPCS: 72125; 99284; A9270

== ENCOUNTER 2025-02-26 11:20 | Outpatient (CLI) | payer OTHER, SELFPAY ==
--- NOTE | ~2025-02-26 | XR_ITS ---
EXAMINATION: XR shoulder RT min 2V, 02/26/2025 12:02 CDT HISTORY: M25.511 - Pain in right shoulder COMPARISON: No comparisons available. Findings: No acute fracture or malalignment. No significant degenerative changes. Soft tissues unremarkable. Impression: No acute fracture or malalignment. Reviewed, dictated and finalized at location P. Impression: No acute fracture or malalignment.
--- NOTE | ~2025-02-26 | MR_ITS ---
EXAMINATION: MR shoulder RT wo con DATE: 02/26/2025 12:01 INDICATION: Right shoulder pain TECHNIQUE: Magnetic resonance imaging (MRI) of the right shoulder was performed without intravenous contrast. Sequences included axial PD-weighted FS FSE, coronal oblique PD-weighted FS FSE, coronal oblique T2-weighted FS FSE, sagittal PD-weighted FS FSE, and sagittal T1-weighted SE. COMPARISON: None. FINDINGS: Coracoacromial arch: The acromion undersurface is curved in morphology (type II). The coracoacromial ligament is normal. Minimal acromioclavicular osteoarthritis. Rotator cuff: The supraspinatus, infraspinatus and teres minor tendons are normal. The subscapularis tendon is normal. Normal rotator cuff muscle bulk and signal. Biceps tendon, glenoid labrum and glenohumeral cartilage: Long head of the biceps tendon is normal. There is a superior, anterior to posterior tear of the glenoid labrum (SLAP tear) extending from the 12:00-10:30 position of the superior to posterior superior glenoid labrum. Mild partial- thickness cartilage loss with smooth chondral surface along the inferomedial aspect of the humeral head and the superior portion of the glenoid. Fluid: Physiologic amount of fluid in the glenohumeral joint and biceps tendon sheath. No loose osteochondral bodies. No abnormal increased fluid in the subacromial/subdeltoid bursa to suggest bursitis. Bones: Normal marrow signal with no edema, fracture or abnormal marrow replacing process. IMPRESSION: 1. SLAP tear at the superior to posterior superior glenoid labrum. 2. Minimal right glenohumeral and acromioclavicular osteoarthritis. Reviewed, dictated and finalized at location A.
== END 2025-02-26 11:21 | disposition home or self-care (01) ==
LOC: MICIMG 11:21
PROVIDERS: PCP Nurse Practitioner Family; Visit Provider Nurse Practitioner Family
DX: S43.431A Superior glenoid labrum lesion of right shoulder, initial encounter (principal); M19.011 Primary osteoarthritis, right shoulder; V89.2XXA Person injured in unspecified motor-vehicle accident, traffic, initial encounter
CPT/HCPCS: 73030; 73221

== ENCOUNTER 2025-05-03 14:54 | Outpatient (CLI) | payer OTHER, SELFPAY ==
--- NOTE | ~2025-05-03 | MM_ITS ---
EXAMINATION: MM screening trinh BI w cristina HISTORY: Screening TECHNIQUE: Craniocaudal and mediolateral oblique 3-D tomosynthesis images were obtained and synthetic 2-D images were generated. CAD analysis was submitted and interpreted. COMPARISON: Comparison to multiple prior studies sequentially, with oldest reviewed study dated , 11/27/2019 BREAST PARENCHYMAL COMPOSITION: Dense: The breasts are extremely dense, which lowers the sensitivity of mammography. FINDINGS: There is no evidence of suspicious mass, calcification, or architectural distortion to suggest malignancy in either breast. IMPRESSION: 1. No mammographic evidence of malignancy. 2. Recommend routine screening mammography in one year. BI-RADS Category 1: Negative Reviewed, dictated and finalized at location A. 

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
--- OUTSIDE RECORDS SUMMARY | 2025-05-03 14:56 | XMS_ITS | Encounter Summary ---
Author Organization [facility] Healthcare Address [address] [place] [address] Care Team Providers Care Engraver Wood Name Role Phone Rehan Guerrero MD Primary Care Provider [phone] Meena Manjarrez Unavailable [phone] Encounter Details Date Type Department Care Team ([facility] Contact Info) Description 03/08/2025 Results Follow-Up [facility] Medical Group Primary Care at [address] [place] [address] Herminia Noble NP [address] [facility] [address] [place] [address] Throat culture Throat Social History Tobacco Use Types Packs/Day Years Used Date Smoking Tobacco: Never Alcohol Use Standard Drinks/Week Comments No 0 (1 standard drink = 0.6 oz pur e alcohol) Comments No Sex and Gender Information Value Date Recorded Sex Assigned at Not on file Legal Sex 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
--- OUTSIDE RECORDS SUMMARY | 2025-05-03 14:56 | XMS_ITS | Encounter Summary ---
Author Organization [facility] Address [address] [facility] [place] [address] Phone Care Team Providers Care Cigarette Machines Mechanic Name Role Phone Rehan Guerrero MD Primary Care Provider [phone] Meena Manjarrez Unavailable [phone] Encounter Details Date Type Department Care Team [...] on file Legal Sex Female 6:30 AM OUTSIDE SALES ACCOUNT REPRESENTATIVE Gender Identity Not on file Sexual Orientation [...] COVID: Suspected 06/30/2024 06/30/2024 06/30/2024 5:46 PM OUTSIDE SALES ACCOUNT REPRESENTATIVE COVID: Suspected 03/03/2025 03/03/2025 03/03/2025 11:27 AM CDT documented as of this encounter Care Teams Cigarette Machines Mechanic Relationship Specialty Start Date End Date Rehan Guerrero MD [address] [place] [address] PCP - General 08/13/16 Meena Manjarrez PA [address] [place] [address] Physician Registered Nurse First Assistant Physician Registered Nurse First Assistant 01/30/21 documented as of this encounter
== END 2025-05-03 14:55 | disposition home or self-care (01) ==
LOC: CHSIMG 14:54
PROVIDERS: PCP Nurse Practitioner Family; Visit Provider Obstetrics & Gynecology
DX: Z12.31 Encounter for screening mammogram for malignant neoplasm of breast (principal)
CPT/HCPCS: 77063; 77067